=== PATIENT | female | born 1960 | race Hispanic/Latino ===

== ENCOUNTER 2017-07-15 02:02 | Inpatient (IN) | payer OTHER ==
[~2017-07-15] VITALS: Ht 157.5 cm; Wt 59.4 kg
[~2017-07-15 02:02] MED LIST: ALLEGRA ALLERG180 M1 PO; VITAMIN D250000 UNIT PO; ZOVIRAX800 M1
[2017-07-15 12:00] VITALS: BP 162/76
--- NOTE | 2017-07-15 13:06 | Operative Report ---
Operative/Inv Procedure Report Surgery Date: 07/15/17 Name of Procedure: Cervical hysterectomy bilateral salpingo-oophorectomy Pre-Operative Diagnosis: pelvic pain Post-Operative Diagnosis: Same Estimated Blood Loss: 500 Surgeon/Process Equipment Operator: Neil BAKER,Judy OchoaAND DR FERNANDO Anesthesia: general endotracheal tube Operative/Procedure Note Note: Patient was taken the operating room placed supine position after adequate induction general anesthesia via endotracheal tube patient placed in dorsolithotomy position the vagina from dorsal fashion Dr. Dejesus were placed stents and dictate and the patient was returned supine position on the abdomen was prepped and draped so fashion through Pfannenstiel skin incision 2 finger breadths of symptoms pubis the skin was cut was carried down to rectus fascia which was cut in either direction using curved males the abdomen was entered high into the abdomen bluntly Grimaldo O'Del was placed in usual fashion patient was placed in Trendelenburg lap pads were placed into the abdomen the uterus was identified elevated using 4 tenaculum a suture was placed on the right round ligament sutures placed on the left round ligament the bladder flap was developed sharply as well as bluntly sequentially cervical branches uterine artery were clamped and cut to level of the external os the specimen was removed using a Bovie at this point surgical cuff was oversewn using 0 Vicryl on the hemostasis was apparent the right tube was picked up carried to its fimbriated end the endopelvic artery was clamped times to on the right and the right ovary and tube were removed about pedicle was suture-ligated times to the left ovary and tube were elevated clamped times to left ovary and tube were removed and the pedicle was suture-ligated using 0 times to all pedicles were reexamined and resutured at this point Sheeba was placed on surgical site all lap pads removed from the abdomen the peritoneum was reapproximated 0 the fascia was reapproximated on #1 suture the skin was reapproximated orlando after Bovie coagulation subcutaneous tissue patient tolerated this well at the end the case the counts correct urine was clear oral instruments counts were correct the patient was awakened from anesthesia extubated and transferred recovery room awake and alert
[2017-07-15 14:48] VITALS: BP 144/72
[2017-07-15 17:00] VITALS: BP 138/70
[2017-07-15 18:00] VITALS: BP 138/70
[2017-07-15 22:28] VITALS: BP 128/74
[2017-07-16 07:33] VITALS: BP 132/68
--- NOTE | 2017-07-16 07:39 | Operative Report ---
Operative/Inv Procedure Report Surgery Date: 07/15/17 Name of Procedure: cystoscopy: bilateral stent insertion Pre-Operative Diagnosis: Pelvic pain. Fibroids Post-Operative Diagnosis: Same Estimated Blood Loss: scant Surgeon/Principal Product Manager: MD Dejesus Arnold-urology Anesthesia: general endotracheal tube Drains: 18 fr lockett Specimens: ucx Complications: none Operative/Procedure Note Note: The patient was taken to the operating room and placed on the OR table in supine position. Timeout was performed, with the patient awake, to confirm correct identify, planned procedures, anesthesia, antibiotics, and other pertinent sean -operative information. After adequate anesthesia, and IV antibiotics, the patient was placed in lithotomy Yellow-fin stirrups. She was then draped and prepped in the usual surgical fashion, including a vaginal prep. A 22 Egyptian cystoscope sheath with a 30 angle lens was inserted into the bladder without significant difficulty. The bladder was thoroughly and systematically examined, and was noted to be free of tumor, free of stone, free of endometriosis. Both ureteral orifices were in their orthotopic positions with clear reflux bilaterally. Under direct visualization the left orifice was intubated with a 5 Egyptian whistle-tip catheter, which was advanced easily into the left kidney pelvis. The right ureteral orifice was intubated with a second 5 Egyptian ureteral whistle tip catheter, and advanced into the right renal pelvis without difficulty. For identification purposes the blue marked stent went into the left kidney, and the right ureteral stent was marked red. Urine culture was obtained and sent to pathology. The cystoscope was then removed leaving both stents in proper place. An 18 Egyptian Lockett catheter was inserted draining clear fluid and 10 mL of sterile water was then placed in the balloon. The ends of the ureteral stents, which protruded externally, were taped to the Lockett catheter in order to secure their position. The individual ureteral stents were then connected to their individual drainage devices. The patient tolerated the procedure well. All sponge needle and instrument count were correct at the end of this procedure. The patient was then repositioned in supine position, and Venodynes were placed on the lower extremeties bilaterally. At this point, Dr. Trejo was able to proceed with the patient's surgery. Discharge Disposition: proceed with Dr. Trejo CC: Louis Dejesus MD
[2017-07-16 08:01] LABS: ABSOLUTE BASOPHIL COUNT 0 /CUMM (0.0-0.2); ABSOLUTE EOSINOPHIL COUNT 0 /CUMM (0.0-0.7); ABSOLUTE GRANULOCYTE CT 7.7 /CUMM (1.4-6.5); ABSOLUTE LYMPH COUNT 0.8 /CUMM (1.2-3.4); BASOPHIL % 0.2 % (0.0-2.0); EOSINOPHIL % 0 % (0-5); MEAN CORPUSCULAR HGB CONC 33.8 G/DL (33.0-37.0); MEAN CORPUSCULAR VOLUME 85.9 FL (81.0-99.0); MEAN PLATELET VOLUME 7.1 FL (7.4-10.4); PLATELET COUNT 307 /CUMM (130-400); RBC DISTRIBUTION WIDTH 13.3 % (11.5-14.5); RED BLOOD CELL CT 3.86 /CUMM (4.20-5.40)
[2017-07-16 08:35] LABS: HEMATOCRIT 33.2 % (37-47); WHITE BLOOD CELL COUNT 9.6 /CUMM (4.8-10.8)
--- NOTE | 2017-07-16 12:43 | PN- Post Delivery/GYN ---
Subjective Subjective: Surgery reviewed with patient Objective Last 24 Hrs of Vital Signs/I&O Vital Signs Date Time Temp Pulse Resp B/P B/P Pulse O2 O2 Flow FiO2 Mean Ox Delivery Rate 07/16 0733 98.9 95 20 132/68 95 Room Air 07/15 2228 98.3 81 20 128/74 91 Room Air 07/15 1800 97.7 64 14 138/70 07/15 1700 97.7 64 14 138/70 94 Room Air 07/15 1448 98.0 85 18 144/72 93 Room Air Intake & Output 07/16 1600 07/16 0800 07/16 0000 Intake Total 875 1000 Output Total 925 950 Balance -50 50 Intake, IV 875 1000 Intake, Oral 0 Number 0 Bowel Movements Output, Urine 925 950 Physical Exam: Pleasant female HEENT anicteric Abdomen soft Seen clean dry and intact orlando in place Extremities negative edema negative Homans Assessment/Plan Assessment/Plan Assessment status post supracervical hysterectomy Plan is to advance diet advance ambulation
[2017-07-16 14:17] VITALS: BP 130/62
[2017-07-16 21:44] VITALS: BP 154/66
[2017-07-17 05:59] VITALS: BP 148/82
[2017-07-17] MEDS ORDERED: PERCOCET 5-3251 EACH PO (10:55)
[2017-07-17] MEDS ORDERED: IBUPROFEN800 M1 PO (10:55)
== END 2017-07-17 13:15 | DRG 519 ==
LOC: SDA 02:02 → 2NB 02:02 → ENRESERV 10:46 → ENTRNSPT 11:31 → EDTRNSPTSTS 11:33 → EDTRNSPT 11:33 → 2NB 11:43 → CMPTRNSPT 11:50 → 2NB 22:11 → ENPENDDIS 07-17 10:54 → 2NB 07-17 13:15
PROVIDERS: Specialist
PROC: 0UT20ZZ Resection of Bilateral Ovaries, Open Approach (ICD-10-PCS; principal; 2017-07-15)
PROC: 0UT70ZZ Resection of Bilateral Fallopian Tubes, Open Approach (ICD-10-PCS; principal; 2017-07-15)
PROC: 0UT90ZL Resection of Uterus, Supracervical, Open Approach (ICD-10-PCS; principal; 2017-07-15)
PROC: 0T788DZ Dilation of Bilateral Ureters with Intraluminal Device, Via Natural or Artificial Opening Endoscopic (ICD-10-PCS; 2017-07-15)
PROC: 3E0T3BZ Introduction of Anesthetic Agent into Peripheral Nerves and Plexi, Percutaneous Approach (ICD-10-PCS; 2017-07-15)
DX: D25.9 Leiomyoma of uterus, unspecified (principal); J45.909 Unspecified asthma, uncomplicated
CPT/HCPCS: 2NBP; 36415; 81001; 81025; 87086; 88307; C9399; J0131; J0694; J1170; J1200; J1650; J1885; J2405